=== PATIENT | female | born 2000 | race Caucasian/White ===

== ENCOUNTER → 2020-09-08 | Outpatient (CLI) | payer OTHER | LOC: COL.RAD 15:28 → EDBD 15:28 → COL.RAD 15:30 | DX: S09.90XA Unspecified injury of head, initial encounter (principal) ==

== ENCOUNTER 2021-10-29 12:46 | Outpatient (RCR) | payer OTHER | END 2021-11-03 | disposition home or self-care (01) | LOC: MKS.ESL.PT | DX: M75.01 Adhesive capsulitis of right shoulder (principal) ==

== ENCOUNTER 2022-03-04 08:00 | Outpatient (RCR) | payer OTHER | END 2022-03-05 | disposition home or self-care (01) | LOC: MKS.ESL.PT | DX: M75.01 Adhesive capsulitis of right shoulder (principal); M24.111 Other articular cartilage disorders, right shoulder ==

== ENCOUNTER 2022-04-26 08:45 | Outpatient (RCR) | payer OTHER | END 2022-05-03 | disposition home or self-care (01) | LOC: MKS.ESL.PT | DX: M75.01 Adhesive capsulitis of right shoulder (principal); M24.111 Other articular cartilage disorders, right shoulder; Z98.890 Other specified postprocedural states ==

== ENCOUNTER 2022-06-02 16:55 | Outpatient (RCR) | payer OTHER | END 2022-06-02 16:57 | LOC: MKS.ESL.PT 16:55 | DX: M75.01 Adhesive capsulitis of right shoulder (principal); M24.111 Other articular cartilage disorders, right shoulder ==

== ENCOUNTER 2022-06-02 16:56 | Outpatient (RCR) | payer OTHER | END 2022-06-02 16:57 | LOC: MKS.ESL.PT 16:56 | DX: M75.01 Adhesive capsulitis of right shoulder (principal) ==

== ENCOUNTER 2022-06-02 16:57 | Outpatient (RCR) | payer OTHER | END 2022-06-02 16:58 | LOC: MKS.ESL.PT 16:57 | DX: M75.01 Adhesive capsulitis of right shoulder (principal) ==